=== PATIENT | male | born 1970 | race Caucasian/White ===

== ENCOUNTER 2024-10-16 22:20 | Observation (INO) | payer OTHER, SELFPAY ==
[2024-10-16 22:45] VITALS: BP 213/121; PULSE 92; RESP 19; TEMP 36.6; O2SAT 96; BMI 54.2
[2024-10-16 23:34] VITALS: BP 183/99; PULSE 96; O2SAT 95
[2024-10-17] VITALS (8 sets, daily range): BP systolic 163–182; BP diastolic 82–105; PULSE 78–98; RESP 17–24; TEMP 36.3–36.8; O2SAT 94–97; BMI 54.2
--- NOTE | 2024-10-17 00:54 | DI.CT.S_ITS ---
PROCEDURE: CT LE LT W CON INDICATIONS: L CHEN WOUND/LEG SWELLING TECHNIQUE: After the administration of intravenous contrast, 3 mm axial sections acquired of the left tibia and fibula, with coronal and sagittal reformats. COMPARISON: None. FINDINGS: Image quality: Excellent. Bones: Mild generalized degenerative changes are seen. No padmini bony involvement is seen with infection, to limits of CT. Mild generalized degenerative changes are seen. Incidental note is made of an accessory ossicle, an os trigonum. Soft tissues: There is an open wound seen involving the anterior medial she in, with packing material. No drainable abscess can be seen. Extensive generalized soft tissue inflammatory change can be seen, with soft tissue thickening. No padmini muscular involvement is seen. IMPRESSION: Open wound involving the anterior medial chen, with packing material. No additional drainable abscess is seen. Extensive prominent cellulitis seen, without padmini muscular involvement. No underlying bony involvement is seen. Dictated by: Alexander iSm M.D. on 10/17/2024 at 0:43 Approved by: Alexander Sim M.D. on 10/17/2024 at 0:45
--- NOTE | 2024-10-17 01:00 | ED.RECABL ---
HPI - Recheck/Abnormal Lab/Rx General Chief Complaint: Recheck/Abnormal Lab/Rx Stated Complaint: sore leg, short of breath Time Seen by Provider: 10/16/24 23:34 Source: patient Mode of arrival: Ambulatory History of Present Illness HPI narrative: 54-year-old male with history of alcohol use disorder, hypertension presents for shortness of breath and for evaluation of a left leg wound. Patient recently had prolonged hospital stay at [facility] in [place]. Patient admitted from 09/23 - 10/15 for cellulitis of his LLE. He underwent I&D of his LLE with general surgery on 09/29 and completed IV Rocephin and Vancomycin on 10/11. Patient states that he lives on [facility], but was in [place] visiting his brother. His brother was unable to keep him any longer and so he flew back home. Patient states that he feels like he can not breathe very well and hasn't been since the beginning of his hospital stay. He says they did a chest X ray which was normal and his concerns were dismissed. He also complains that he does not have any resources to care for himself at home. Related Data Previous Rx's Medication Instructions Recorded diclofenac sodium 3 % topical gel 1 applic topical BID #100 grams 07/05/24 cephalexin 500 mg capsule 1,000 mg (2 x 500 mg) PO BID #40 09/18/24 caps meloxicam 7.5 mg tablet 7.5 mg PO DAILY PRN pain #20 tabs 09/18/24 Allergies Allergy/AdvReac Type Severity Reaction Status Date / Time No Known Drug Allergies Allergy Verified 08/30/24 15:37 Patient History Social History Smoking Status: Current every day smoker Smoking Status: Current every day smoker Exam Initial Vital Signs Initial Vital Signs: Vital Signs Temperature 97.8 F 10/16/24 22:45 Pulse Rate 92 H 10/16/24 22:45 Respiratory Rate 19 10/16/24 22:45 Blood Pressure 213/121 H 10/16/24 22:45 Pulse Oximetry 96 10/16/24 22:45 Oxygen Delivery Method Room Air 10/16/24 22:45 Const: Awake, alert, no acute distress Cardiac: regular rate, regular rhythm RESP: unlabored, clear, no wheezing, speaking in long, extensive sentences without dyspnea MSK: wound with packing anterior chen Skin: erythema, extra warmth LLE from dorsum of foot to knee Neuro: AO x3, CN II-XII grossly intact, moves all extremities Course Orders Ordered: ED Orders 10/17/24 00:52 Consult to FINANCIAL ASSISTANCE SPECIALIST - Manager Of Software Stat 10/17/24 00:54 CT LE LT w con Stat 10/17/24 00:58 CBC Auto Diff [Complete Blood Count AUTO DIFF] Stat CMP [Comprehensive Metabolic Panel] Stat CRP [C-Reactive Protein Quant] Stat Erythrocyte Sedimentation Rate Stat NT-proBNP (BNP-Adult 18+) Stat Trop I [Troponin I] Stat 10/17/24 01:53 Chest [XR chest 1V] Stat Acetaminophen (Acetaminophen 325 Mg Tablet) 650 mg PO Q6H PRN PRN Reason: Fever/Mild Pain (1-3) Al Hydrox/Mg Hydrox/Simethicone (Mag Hydrox/Alum/Simeth 30 Ml Udc) 30 ml PO Q6HR PRN PRN Reason: Dyspepsia Enoxaparin Sodium (Enoxaparin 40 Mg/0.4 Ml Syringe) 40 mg SUBCUT DAILY ANNIE Vancomycin HCl/Dextrose (Vancomycin) 2,000 mg in 400 mls @ 200 mls/hr IV NOW ONE Stop: 10/17/24 03:56 Last Admin: 10/17/24 02:41 Dose: 200 mls/hr Documented By: OZZIE Ceftriaxone Sodium 2,000 mg/ (Sodium Chloride) 100 mls @ 200 mls/hr IV Q24H ANNIE Naloxone HCl (Naloxone 0.4 Mg/Ml Vial) 0.2 mg IV Q2MIN PRN PRN Reason: Opiate Reversal Ondansetron HCl (Ondansetron 4 Mg/2 Ml Inj) 4 mg IV Q8HR PRN PRN Reason: Nausea And Vomiting Oxycodone HCl (Oxycodone Ir 5 Mg Tablet) 2.5 mg PO Q3H PRN PRN Reason: Pain, Moderate (4-6) Oxycodone HCl (Oxycodone Ir 10 Mg Tablet) 5 mg PO Q3H PRN PRN Reason: Pain, Severe (7-10) Sennosides (Sennosides 8.6 Mg Tablet) 17.2 mg PO BEDTIME PRN PRN Reason: constipation Vancomycin HCl (Vancomycin Per Pharmacy) 1 request MISC NOW PRN PRN Reason: cellulitis Discontinued Medications Ceftriaxone Sodium 2,000 mg/ (Sodium Chloride) 100 mls @ 200 mls/hr IV NOW ONE Stop: 10/17/24 01:57 Last Infusion: 10/17/24 02:42 Dose: Infused Documented By: Admin: 10/17/24 02:01 Dose: 200 mls/hr Documented By: Azithromycin 500 mg/ Dextrose 250 mls @ 250 mls/hr IV NOW ONE Stop: 10/17/24 02:48 Lorazepam (Lorazepam 2 Mg/Ml Inj) 1 mg IV NOW ONE Stop: 10/17/24 01:15 Last Admin: 10/17/24 01:30 Dose: 1 mg Documented By: Vital Signs Vital signs: Vital Signs - 8 hr 10/16/24 22:45 10/16/24 23:34 10/16/24 23:34 Temperature 97.8 F Pulse Rate 92 H 96 H Respiratory Rate 19 Blood Pressure 213/121 H 183/99 H Pulse Oximetry 96 95 Oxygen Delivery Method Room Air 10/17/24 00:00 10/17/24 00:00 10/17/24 00:30 Temperature Pulse Rate 78 85 Respiratory Rate Blood Pressure 168/83 H Pulse Oximetry 94 95 Oxygen Delivery Method 10/17/24 00:30 Temperature Pulse Rate Respiratory Rate Blood Pressure 170/92 H Pulse Oximetry Oxygen Delivery Method MDM - Recheck/Abnormal Lab/Rx Lab Data 10/17/24 00:58 10/17/24 00:58 Labs: Lab Results 10/17/24 Range/Units 00:58 WBC 7.7 (4.5-11.0) X10^3/uL RBC 4.13 L (4.5-5.9) X10^6/uL Hgb 11.5 L (13.5-17.5) g/dL Hct 35.3 L (41-53) % MCV 85.6 (80-100) fL MCH 27.9 (26-34) PG MCHC 32.6 (30-36) % RDW 14.9 H (11.6-14.8) % Plt Count 276 (150-400) X10^3/uL Neut % (Auto) 64.9 (50-75) % Lymph % (Auto) 20.2 L (25-40) % [place] % (Auto) 8.5 (3-14) % Eos % (Auto) 5.2 H (2-4) % Baso % (Auto) 1.2 (0-2) % Neut # (Auto) 5000 (3294-9165) /uL Lymph # (Auto) 1600 (2248-7886) /uL [place] # (Auto) 700 (0-900) /uL Eos # (Auto) 400 (0-450) /uL Baso # (Auto) 100 (0-100) /uL ESR 23 H (0-15) MM/HR Sodium 137 (137-145) mmol/L Potassium 3.7 (3.4-5.1) mmol/L Chloride 104 (98-107) mmol/L Carbon Dioxide 31 (22-32) mmol/L BUN 20 (9-20) mg/dL Creatinine 0.81 (0.66-1.25) mg/dL Estimated GFR > 60 (>60) mL/min BUN/Creatinine Ratio 24.7 H (6-22) Glucose 134 H (70-100) mg/dL Calcium 8.6 (8.4-10.2) mg/dL Total Bilirubin 0.4 (0.2-1.3) mg/dL AST 39 (17-59) IU/L ALT 37 (<50) IU/L Alkaline Phosphatase 87 (38-126) U/L Troponin I 0.018 (0.01-0.034) ng/mL C-Reactive Protein 1.6 H (<1.0) mg/dL NT-Pro-B Natriuret Pep 342 H (<125) pg/mL Total Protein 6.9 (6.3-8.2) g/dL Albumin 3.7 (3.5-5.0) g/dL Globulin 3.2 (1.7-4.1) g/dL Albumin/Globulin Ratio 1.2 (1.0-2.8) Imaging Data CT scan - abdomen/pelvis: Radiologist's Impression: PROCEDURE: CT LE LT W CON INDICATIONS: L CHEN WOUND/LEG SWELLING TECHNIQUE: After the administration of intravenous contrast, 3 mm axial sections acquired of the left tibia and fibula, with coronal and sagittal reformats. COMPARISON: None. FINDINGS: Image quality: Excellent. Bones: Mild generalized degenerative changes are seen. No padmini bony involvement is seen with infection, to limits of CT. Mild generalized degenerative changes are seen. Incidental note is made of an accessory ossicle, an os trigonum. Soft tissues: There is an open wound seen involving the anterior medial she in, with packing material. No drainable abscess can be seen. Extensive generalized soft tissue inflammatory change can be seen, with soft tissue thickening. No padmini muscular involvement is seen. IMPRESSION: Open wound involving the anterior medial chen, with packing material. No additional drainable abscess is seen. Extensive prominent cellulitis seen, without padmini muscular involvement. No underlying bony involvement is seen. Dictated by: Alexander Sim M.D. on 10/17/2024 at 0:43 Approved by: Alexander Sim M.D. on 10/17/2024 at 0:45 Chest x-ray: Radiologist's Impression: Preliminary report: RLL PNA MDM Narrative Medical decision making narrative: Patient with LLE wound, subjective dyspnea. Patient has been off of antibiotics for 1 week but since his hospital stay was in [place] he has no resources at home. Unfortunately it appears as though his left lower extremity may be becoming cellulitic again. It was warm to the touch, very erythematous. Wound dressing last changed 2 days ago. Although patient was complaining of feeling short of breath he is saturating well on room air and able to speak in lengthy sentences without dyspnea. Laboratory work shows WBC count 7.7, hemoglobin 11.5, platelet count 276, sodium 137, potassium 3.7, creatinine 0.81, CRP 1.6. CT of the lower extremity shows extensive cellulitic changes, no muscle involvement or abscess. CXR read as RLL PNA. Appears as though RLL infiltrate may possibly be overlap from patient's abdomen, however will add azithromycin for coverage. Patient to be admitted for further treatment. Discharge Plan Departure Patient Disposition: Admitted As Inpatient Clinical Impression: Cellulitis of leg, Pneumonia Admit Date/Time: 10/17/24 03:06 Admit Provider: Jeremias Yates
[2024-10-17 01:05] LABS: Add Manual Diff / Slide Review NO; Basophils Absolute Auto 100 /uL (0-100); Basophils Percent Auto 1.2 % (0-2); Eosinophils Absolute Auto 400 /uL (0-450); Eosinophils Percent Auto 5.2 % (2-4); Hematocrit 35.3 % (41-53); Hemoglobin 11.5 g/dL (13.5-17.5); Lymphocytes Absolute Auto 1600 /uL (1100-4500); Lymphocytes Percent Auto 20.2 % (25-40); Mean Corpuscular HGB Conc 32.6 % (30-36); Mean Corpuscular Hemoglobin 27.9 PG (26-34); Mean Corpuscular Volume 85.6 fL (80-100); Monocytes Absolute Auto 700 /uL (0-900); Monocytes Percent Auto 8.5 % (3-14); Neutrophils Absolute Auto 5000 /uL (1500-7000); Neutrophils Percent Auto 64.9 % (50-75); Platelet Count 276 X10^3/uL (150-400); Red Blood Cell Count 4.13 X10^6/uL (4.5-5.9); Red Cell Distribution Width 14.9 % (11.6-14.8); White Blood Cell Count 7.7 X10^3/uL (4.5-11.0)
[2024-10-17 01:18] LABS: Alanine Aminotransferase 37 IU/L (<50); Albumin 3.7 g/dL (3.5-5.0); Albumin Globulin Ratio 1.2 (1.0-2.8); Alkaline Phosphatase 87 U/L (38-126); Aspartate Aminotransferase 39 IU/L (17-59); BUN Creatinine Ratio 24.7 (6-22); Bilirubin Total 0.4 mg/dL (0.2-1.3); Blood Urea Nitrogen 20 mg/dL (9-20); C-Reactive Protein Quant 1.6 mg/dL (<1.0); Calcium 8.6 mg/dL (8.4-10.2); Carbon Dioxide 31 mmol/L (22-32); Chloride 104 mmol/L (98-107); Estimated Glomerular Filt Rate > 60 mL/min (>60); Globulin 3.2 g/dL (1.7-4.1); Glucose 134 mg/dL (70-100); HEMOLYSIS < 15 (0-50); Potassium 3.7 mmol/L (3.4-5.1); Sodium 137 mmol/L (137-145); Total Protein 6.9 g/dL (6.3-8.2)
[2024-10-17] MEDS: LORazepam 2 MG/ML INJ 1 MG IV (01:30)
--- NOTE | 2024-10-17 01:53 | DI.RAD.S_ITS ---
PROCEDURE: XR CHEST 1V INDICATIONS: dyspnea TECHNIQUE: One view of the chest was acquired. COMPARISON: None. FINDINGS: Surgical changes and devices: None. Lungs and pleura: Subtle opacity in right lower lung field is seen. No pleural effusions or pneumothorax. Mediastinum: Mediastinal contours appear normal. Heart size is enlarged. Bones and chest wall: No suspicious bony lesions. Overlying soft tissues appear unremarkable. IMPRESSION: Suggestion of small right lower lobe infiltrate versus atelectasis. Cardiomegaly. No pleural effusion or pneumothorax. No discrepancies. Dictated by: Martín Lagos M.D. on 10/17/2024 at 8:17 Approved by: Martín Lagos M.D. on 10/17/2024 at 8:18
[2024-10-17] MEDS: cefTRIAXone 2,000 MG in SODIUM CHLORIDE 0.9% 100 ML 200 MG IV (02:01)
[2024-10-17 02:11] LABS: Erythrocyte Sedimentation Rate 23 MM/HR (0-15)
[2024-10-17 02:17] LABS: NT-proBNP (BNP-Adult 18+) 342 pg/mL (<125); Troponin I 0.018 ng/mL (0.01-0.034)
[2024-10-17] MEDS: VANCOMYCIN 2,000 MG/400 ML PIGGYBACK 200 MG IV (02:41)
--- NOTE | 2024-10-17 03:13 | DI.ECHO.S_ITS ---
[facility] : : [id number] : [place] : : [id number] : : Phone: [phone] Echocardiogram Report + :Name: GURINDER GOODMAN Study Date: 10/17/2024 Height: 72 in : :[facility] ReadingLocation: Weight: 400 lb : : Gender: Male BSA: 2.9 m2 : :: 1970 Age: 54 yrs BP: 170/82 mmHg: :Reason For Study: SUSPECTED CONGESTIVE HEART FAILURE : :Ordering Physician: MELO : :MATHEUS WEBSTER Performed By: Paulette Deal : :Referring: MATHEUS JOYCE : + Interpretation Summary The study quality was technically difficult. There is mild concentric left ventricular hypertrophy. The ejection fraction is estimated to be 60-65%. Diastolic function could not be accurately assessed due to unobtainable data. The right ventricle is normal in size and function. No obvious valvular abnormality. Pulmonary artery pressures cannot be estimated because of the lack of a measurable TR jet velocity but the IVC suggests a CVP of around 15 mmHg. The ascending aorta is mildly enlarged, 3.8 cm. Procedure: A two-dimensional transthoracic echocardiogram with color flow and Doppler was performed. The study quality was technically difficult. There is no prior echocardiogram noted for this patient. The patient was in sinus rhythm with heart rates between 84-99 bpm during the exam. Left Ventricle: The left ventricle is normal in size. There is mild concentric left ventricular hypertrophy. The ejection fraction is estimated to be 60-65%. Diastolic function could not be accurately assessed due to unobtainable data. Right Ventricle: The right ventricle is normal in size and function. Atria: The left atrial size is normal. Right atrial size is normal. There is no Doppler evidence for an interatrial shunt. Mitral Valve: The mitral valve leaflets appear mildly thickened, but open well. There is moderate mitral annular calcification. The mitral valve mean gradient is 4.6 mmHg. No significant mitral valve stenosis. There is no mitral regurgitation noted. Aortic Valve: The aortic valve opens well. There is no aortic valve stenosis. No aortic regurgitation is present. Tricuspid Valve: The tricuspid valve leaflets are thin and pliable. There is a trace or physiologic amount of tricuspid regurgitation. Pulmonary artery pressures cannot be estimated because of the lack of a measurable TR jet velocity but the IVC suggests a CVP of around 15 mmHg. Pulmonic Valve: The pulmonic valve is not well visualized. There is no pulmonic valvular regurgitation. Great Vessels: The aortic root is normal size. The ascending aorta is mildly enlarged. The IVC is dilated (diameter is greater than 2.1 cm) and it collapses less than 50% with a sniff. This suggests a high right atrial pressure of 15 mm Hg. Pericardium/ Pleura There is no pericardial effusion. There is no pleural effusion. MMode/2D Measurements & Calculations LVIDd: 5.3 cm LVOT diam: 2.3 cm LVIDs: 4.0 cm Ao root diam: 3.7 cm FS: 25.1 % asc Aorta Diam: 3.8 cm EPSS: 0.62 cm IVSd: 1.2 cm LVPWd: 1.1 cm LV douglass. diameter/BSA (cm/m^2): 1.9 LV sys. diameter/BSA (cm/m^2): 1.4 LA A2 area: 26.3 cm2 RA long axis: 4.8 cm LA A4 area: 16.6 cm2 RA area: 18.1 cm2 LA length (vol): 5.2 cm RA vol: 58.1 ml LA vol: 71.2 ml RA : 20.3 ml/m2 LA vol index: 24.9 ml/m2 IVC diam: 3.4 cm RVD1 (basal): 4.0 cm RVD2 (mid): 3.3 cm TAPSE: 2.3 cm Doppler Measurements & Calculations Ao V2 max: 210.7 cm/sec LVOT Max Flo: 155.7 cm/sec Ao V2 mean: 159.0 cm/sec LV V1 max P.7 mmHg Ao max P.4 mmHg LV V1 VTI: 28.1 cm Ao mean P.6 mmHg PALOMA(I,D): 3.1 cm2 Ao V2 VTI: 38.5 cm PALOMA(V,D): 3.1 cm2 sev ratio: 0.73 PALOMA indexed to BSA (cm^2/m^2): 1.1 MV E max flo: 130.8 cm/sec PA V2 max: 110.2 cm/sec MV A max flo: 114.0 cm/sec PA V2 mean: 79.4 cm/sec MV E/A: 1.1 PA mean P.7 mmHg Med Peak E' Flo: 8.2 cm/sec PA pr(Accel): 13.9 mmHg E/E' med: 16.0 Lat Peak E' Flo: 7.9 cm/sec E/E' lat: 16.7 E/e' average: 16.3 MV dec time: 0.22 sec MVA(VTI): 2.9 cm2 MV V2 mean: 97.7 cm/sec SV(LVOT): 117.8 ml MV mean P.6 mmHg MV V2 VTI: 40.9 cm Reading Physician:02:33 PM
--- NOTE | 2024-10-17 03:18 | PM.HP.1 ---
History of Present Illness History of Present Illness Date Patient Seen: 10/17/24 Chief complaint: sore leg, short of breath Narrative: 54 y/o with PMH of HTN, chronic left knee pain, alcohol abuse, smoking, morbid obesity, anxiety, came to the ER complaining on left leg swelling and pain and shortness of breath. CT shows significant LLE cellulitis, w/o an abscess. CXR shows RLL infiltrate. Without leukocytosis, not septic. Covered with vancomycin, ceftriaxone and azithromycin in the ED. A month ago he injured leg, bumped into something, just before his trip to [place]. His PCP prescribed an antibiotic before his trip. Not clear if he filed that but after few days in [place] he was hospitalized in [facility] on 09/23 for 3 weeks. He had I&D and was on IV abx through 10/11, vancomycin and Rocephin. He then came back home few days ago. [facility] Social History household members: none Smoking Status: Current every day smoker Meds Home Medications and Allergies Home Medications Medication Instructions Recorded Confirmed Type diclofenac sodium 3 % topical gel 1 applic topical BID #100 grams 07/05/24 07/05/24 Rx cephalexin 500 mg capsule 1,000 mg (2 x 500 mg) PO BID #40 09/18/24 09/18/24 Rx caps meloxicam 7.5 mg tablet 7.5 mg PO DAILY PRN pain #20 tabs 09/18/24 Rx Allergies Allergy/AdvReac Type Severity Reaction Status Date / Time No Known Drug Allergies Allergy Verified 08/30/24 15:37 Review of Systems Constitutional Comments: w/o chills had fever Cardiovascular Comments: w/o chest pain Respiratory Comments: short of breath Musculoskeletal Comments: chronic b/l (Lt > Rt) knee pain Left leg tender, red, swollen, getting worse Exam Vital Signs (past 8 hours): - 10/16/24 22:45 10/16/24 23:34 10/16/24 23:34 Temperature 97.8 F Pulse Rate 92 H 96 H Respiratory Rate 19 Blood Pressure 213/121 H 183/99 H Pulse Oximetry 96 95 Oxygen Delivery Method Room Air 10/17/24 00:00 10/17/24 00:00 10/17/24 00:30 Temperature Pulse Rate 78 85 Respiratory Rate Blood Pressure 168/83 H Pulse Oximetry 94 95 Oxygen Delivery Method 10/17/24 00:30 10/17/24 03:11 10/17/24 03:11 Temperature Pulse Rate Respiratory Rate 20 Blood Pressure 170/92 H 165/90 H Pulse Oximetry 97 Oxygen Delivery Method Oxygen Delivery Method Room Air Const Other: in no distress Resp Other: normal respiratory effort, CTA Cardio Other: RRR Skin Other: erythema LLE, Lt chen packed wound Neuro Other: w/o deficits Psych Other: lucid, odd affect Objective Labs 10/17/24 00:58 10/17/24 00:58 Labs: Laboratory Results - last 24 hr 10/17/24 00:58 WBC 7.7 RBC 4.13 L Hgb 11.5 L Hct 35.3 L MCV 85.6 MCH 27.9 MCHC 32.6 RDW 14.9 H Plt Count 276 Neut % (Auto) 64.9 Lymph % (Auto) 20.2 L [place] % (Auto) 8.5 Eos % (Auto) 5.2 H Baso % (Auto) 1.2 Neut # (Auto) 5000 Lymph # (Auto) 1600 [place] # (Auto) 700 Eos # (Auto) 400 Baso # (Auto) 100 ESR 23 H Sodium 137 Potassium 3.7 Chloride 104 Carbon Dioxide 31 BUN 20 Creatinine 0.81 Estimated GFR > 60 BUN/Creatinine Ratio 24.7 H Glucose 134 H Calcium 8.6 Total Bilirubin 0.4 AST 39 ALT 37 Alkaline Phosphatase 87 Troponin I 0.018 C-Reactive Protein 1.6 H NT-Pro-B Natriuret Pep 342 H Total Protein 6.9 Albumin 3.7 Globulin 3.2 Albumin/Globulin Ratio 1.2 Assessment & Plan Assessment and plan (1) Cellulitis of leg: Qualifiers: Laterality: left Qualified Code(s): L03.116 - Cellulitis of left lower limb Status: Acute (2) Pneumonia: Qualifiers: Laterality: right Lung location: lower lobe of lung Pneumonia type: due to unspecified organism Qualified Code(s): J18.9 - Pneumonia, unspecified organism Status: Acute (3) Uncontrolled hypertension: Status: Acute (4) Anxiety: Status: Acute (5) Smoker: Status: Acute (6) Morbid obesity: Status: Acute (7) Alcohol abuse: Status: Acute Assessment & Plan narrative: LLE Cellulitis - Rocephin, vancomycin - wound care - elevate leg PNA / Smoker - RLL, possibly aspiration with a Hx of alcohol use - on Rocephin already, not hypoxic - nicotine patch Uncontrolled HTN - not on antihypertensive - started Lisinopril 10 mg bid - echocardiogram, suspected CHF Alcohol Abuse / Anxiety / Panic Attacks - not on medications - last drink a month ago - had Ativan in ED DVT prophylaxis - Lovenox Time-Based Coding :: [TOTAL MINUTES] spent with patient and on the chart (including review of chart, obtaining history, exam, reviewing outside data, placing orders, documenting exam and treatment plan, and counseling patient) on [DATE].
[2024-10-17] MEDS: AZITHROMYCIN 500 MG in DEXTROSE 5% IN WATER 250 ML 250 MG IV (05:43)
[2024-10-17 05:57] LABS: MRSA (Nasal) PCR NOT DETECTED (Not Detect)
[2024-10-17] MEDS: ENOXAPARIN 40 MG/0.4 ML SYRINGE SUBCUT ×2 (09:04→21:03)
--- NOTE | 2024-10-17 11:41 | P.HP_ITS ---
History of Present Illness History of Present Illness Date Patient Seen: 10/17/24 Time Patient Seen: 08:25 Date of Onset of Symptoms: 10/16/24 Chief complaint: sore leg, short of breath Narrative: 54 y/o with PMH of HTN, chronic left knee pain, alcohol abuse, smoking, morbid obesity, anxiety, came to the ER complaining on left leg swelling and pain and shortness of breath. CT shows significant LLE cellulitis, w/o an abscess. CXR shows RLL infiltrate. Without leukocytosis, not septic. Covered with vancomycin, ceftriaxone and azithromycin in the ED. A month ago he injured leg, bumped into something, just before his trip to [place]. His PCP prescribed an antibiotic before his trip. Not clear if he filed that but after few days in [place] he was hospitalized in [facility] on 09/23 for 3 weeks. He had I&D and was on IV abx through 10/11, vancomycin and Rocephin. He then came back home few days ago. Cell, under the primary care in [facility] Interval history: He lives on his sailboat in [facility], under the primary care of Dr. Lisette Hebert. [facility] Social History household members: none Smoking Status: Current every day smoker Meds Home Medications and Allergies Home Medications Medication Instructions Recorded Confirmed Type diclofenac sodium 3 % topical gel 1 applic topical BID #100 grams 07/05/24 07/05/24 Rx cephalexin 500 mg capsule 1,000 mg (2 x 500 mg) PO BID #40 09/18/24 09/18/24 Rx caps meloxicam 7.5 mg tablet 7.5 mg PO DAILY PRN pain #20 tabs 09/18/24 Rx Allergies Allergy/AdvReac Type Severity Reaction Status Date / Time No Known Drug Allergies Allergy Verified 08/30/24 15:37 Review of Systems Review of Systems ROS: Yes All systems reviewed with the patient and are negative except as otherwise documented Exam Vital Signs (past 8 hours): - 10/17/24 03:43 10/17/24 07:00 10/17/24 08:00 Temperature 97.4 F L 98 F Pulse Rate 86 85 Respiratory Rate 22 17 Blood Pressure 182/105 H 170/82 H Pulse Oximetry 97 96 Oxygen Delivery Method Room Air Oxygen Flow Rate 0 0 Oxygen Delivery Method Room Air Oxygen Flow Rate 0 Narrative Exam Narrative: GENERAL: This is a well-nourished, well-developed patient, in no apparent distress. EYES: Pupils equal round and reactive. Extraocular motions intact. No scleral icterus. No injection or drainage. ENT: Mucous membranes pink and moist. NECK: Supple, nontender, no meningeal signs. CARDIOVASCULAR: Regular rate and rhythm without murmurs, gallops, or rubs. RESPIRATORY: Clear to auscultation. GASTROINTESTINAL: Abdomen soft, non-tender, nondistended. EXTREMITIES: 1-2+ edema. NEUROLOGIC: Alert, oriented, speech fluent, full upper and lower motor strength, no focal deficits evident. DERMATOLOGIC: Bilateral lower extremity erythema from ankles to mid chen, with left anterior chen 3 cm wound packed with gauze. Objective Imaging CT lower extremities:: Radiologist's impression: Open wound involving the anterior medial chen, with packing material. No additional drainable abscess is seen. Extensive prominent cellulitis seen, without padmini muscular involvement. No underlying bony involvement is seen. Chest x-ray: Radiologist's impression: Suggestion of small right lower lobe infiltrate versus atelectasis. Cardiomegaly. No pleural effusion or pneumothorax. No discrepancies. Labs 10/17/24 00:58 10/17/24 00:58 Labs: Laboratory Results - last 24 hr 10/17/24 10/17/24 00:58 04:05 WBC 7.7 RBC 4.13 L Hgb 11.5 L Hct 35.3 L MCV 85.6 MCH 27.9 MCHC 32.6 RDW 14.9 H Plt Count 276 Neut % (Auto) 64.9 Lymph % (Auto) 20.2 L [place] % (Auto) 8.5 Eos % (Auto) 5.2 H Baso % (Auto) 1.2 Neut # (Auto) 5000 Lymph # (Auto) 1600 [place] # (Auto) 700 Eos # (Auto) 400 Baso # (Auto) 100 ESR 23 H Sodium 137 Potassium 3.7 Chloride 104 Carbon Dioxide 31 BUN 20 Creatinine 0.81 Estimated GFR > 60 BUN/Creatinine Ratio 24.7 H Glucose 134 H Calcium 8.6 Total Bilirubin 0.4 AST 39 ALT 37 Alkaline Phosphatase 87 Troponin I 0.018 C-Reactive Protein 1.6 H NT-Pro-B Natriuret Pep 342 H Total Protein 6.9 Albumin 3.7 Globulin 3.2 Albumin/Globulin Ratio 1.2 Nasal Screen MRSA (PCR) Not detected Assessment & Plan Assessment & Plan narrative: LLE Cellulitis - Rocephin, vancomycin - wound care - elevate leg PNA / Smoker - RLL, possibly aspiration with a Hx of alcohol use - on Rocephin already, not hypoxic - nicotine patch Uncontrolled HTN - not on antihypertensive - started Lisinopril 10 mg bid - echocardiogram, suspected CHF Alcohol Abuse / Anxiety / Panic Attacks - not on medications - last drink a month ago - had Ativan in ED DVT prophylaxis - Lovenox Quality MIPS - Admit I confirm the patient?s Advance Care Plan is present, Code status is documented, Surrogate decision maker is in patient?s record [If Yes, STOP here]: Yes MIPS - Meds 'Current medications' to include all prescriptions, [id number] products, herbals, cannabis/cannabidiol products, and vitamin/mineral/dietary (nutritional) supplements. I have utilized all available resources to obtain, update, or review the patient?s current medications. [If Yes, STOP here]: Yes PROFEE Charge Codes Initial inpatient/observation care: 78872
--- NOTE | 2024-10-17 12:55 | PT.IIE ---
Current Diagnoses Morbid (severe) obesity due to excess calories (10/17/24) Alcohol abuse, uncomplicated (10/17/24) Nicotine dependence, unspecified, uncomplicated (10/17/24) Anxiety disorder, unspecified (10/17/24) Essential (primary) hypertension (10/17/24) Pneumonia, unspecified organism (10/17/24) Cellulitis of left lower limb (10/17/24) Physical Therapy Inpatient Evaluation/Re-Eval M1 PT/OT-IP Prior Functional Status Start: 10/17/24 12:44 Freq: NEEDED Status: Active Protocol: Document 10/17/24 12:44 [facility] (Rec: 10/17/24 12:54 [facility] [id number]) Medical Review Prior Functional Status Medical History Reviewed Yes Diet/Fluid Consistency Regular Communication WNL Mobility and Gait amb the past month w/walking stick but nothing prior Activities of Daily Living and IADL's I Social History Household Members none Living Arrangements Other Additional Social History Comment [place] lives [place]. Difficult to get social hx M2 PT-IP Current Condition Start: 10/17/24 12:44 Freq: NEEDED Status: Active Protocol: Document 10/17/24 12:44 [facility] (Rec: 10/17/24 12:54 [facility] [id number]) Physical Therapy Current Condition Current Condition Evaluation Date 10/17/24 Treatment Diagnosis LLE cellulitis M3 PT-IP Subjective Start: 10/17/24 12:44 Freq: NEEDED Status: Active Protocol: Document 10/17/24 12:44 [facility] (Rec: 10/17/24 12:54 [facility] [id number]) Subjective Physical Therapy Visit Type Type Initial Evaluation Visit Start Time 12:03 Visit Stop Time 12:33 Number of ACUPRESSURE THERAPIST Visits 0 Physical Therapy Visit Comments Patient Comments Pt notes frustration about care here and at other hospital. Notes he knows going back to his boat is not safe for his LLE wound M4 PT-IP Mobility and Gait Start: 10/17/24 12:44 Freq: NEEDED Status: Active Protocol: Document 10/17/24 12:44 [facility] (Rec: 10/17/24 12:54 [facility] [id number]) PT-Transfer Assessment Sit to and From Stand Sit to and from Stand Independent,Use of Upper Extremities Gait Assessment Gait Gait Assistance Required: Standby Assistance Distance (Feet) 120 Assistive Devices Assistive Device Gait Belt Gait Deviations General Gait Pattern Decreased Feet Clearance, Lateral Trunk Lean Factors Limiting Gait Function Factors Limiting Gait Function Decreased Strength,Pain Comments Gait Comments Pt sitting in chair upon PT arrival. He is able to stand Indep and amb around room then down [place]es and back w/SBA and some SOB. Stopped walk d/t pt frustrated dressing kept falling down. He sat in chair indep and stood again indep to amb room to look for his walking stick SBA. Pt left in chair w/call light in reach. PT-Balance Assessment Sitting Balance and Reactions Static Sitting Balance Ability Normal Dynamic Sitting Balance Ability Normal Standing Balance and Reactions Static Standing Balance Ability Normal Dynamic Standing Balance Ability Good M5 PT-IP Objective Assessments Start: 10/17/24 12:44 Freq: NEEDED Status: Active Protocol: Document 10/17/24 12:44 [facility] (Rec: 10/17/24 12:54 [facility] [id number]) Orientation Orientation/Cognition Safety Awareness Decreased Safety Awareness Gross Range of Motion Lower Extremity ROM Assessment Within Functional Limits Strength Lower Extremity Strength Assessment Within Functional Limits M6 PT-IP Treatment Start: 10/17/24 12:44 Freq: NEEDED Status: Active Protocol: Document 10/17/24 12:44 [facility] (Rec: 10/17/24 12:54 [facility] [id number]) Physical Therapy Treatment Education Education Provided Safety M7 PT-IP Assessment and Plan Start: 10/17/24 12:44 Freq: NEEDED Status: Active Protocol: Document 10/17/24 12:44 [facility] (Rec: 10/17/24 12:54 [facility] [id number]) PT Summary Assessment and Plan Potential Rehabilitation Potential Good Status of Condition at Evaluation Evolving Summary Assessment Summary Pt is SBA or indep w/all gait and transfers noted today without LOB w/activity. Appears like pt is close to baseline mobility at this time . He was able to don shoes indep in standing w/holding counter for support. At this time DC PT d/t no PT needs. Frequency of Treatment Frequency Of Treatment Discharge Treatment Plan Physical Therapy Treatment Plan Bed Mobility Training,Transfer Training,Gait Training, Therapeutic Exercise,Balance Retraining,Discharge Planning, Neuromuscular Re-ed Recommendations To Nursing Amount of Assist Needed Standby Assistance Discharge Recommendations Other Discharge Recommendations pt will require assist for wound care for home. Difficulty w/safety on boat w/ current LLE wound Transportation Needs at Discharge Private Vehicle
[2024-10-17] MEDS: VANCOMYCIN 1,750 MG in SODIUM CHLORIDE 0.9% 500 ML 250 MG IV (13:33)
--- NOTE | 2024-10-17 15:14 | CM.DANOTE ---
Initial DCP Assessment Note Pt is a 54 yo male, resident of [facility], arrives with complaint of sore leg, swelling, SOB. Patient admitted for management of LLE Cellulitis, PNA, uncontrolled HTN. PMH includes chronic left knee pain, alcohol abuse, smoking, morbid obesity, anxiety. Patient is 6ft 400lbs. PCP: Lisette Hebert Payer: [employer] Reviewed chart, pt discussed in multidisciplinary rounds this morning. Reportedly, patient has been living on his boat in [facility], for 8+years. Patient injured his leg months ago by falling through a deck while working and has had complication with healing since. Patient went to [place] to visit family around [facility] and ended up spending 3 weeks in the hospital for I+D of a leg abscess and IV abx through 10/11. Met w/patient, introduced self and role. Visit brief. Patient cries out in pain and is not forthcoming with information. Patient is currently living on his sail boat, no running water. Patient uses a space heater. Patient admits to difficulty accessing food. Patient knows where the [employer] is and has used the food bank on [facility]. Patient has a barely driveable truck that he uses on [address]. Patient denies illicit drug use and reports being sober for 7o days. Patient does not want to discuss his drinking. Patient seen up moving in his room today and in the hallway, independently w/walker. CM team will plan to follow clinical course closely. Plan: Discharge home to [facility]. Reassess feasibility of this plan if patient requires ongoing IV abx and wound care. BRIAN Smith Discharge Planning/Care Management CM Discharge Assessment Start: 10/17/24 14:57 Freq: Status: Active Protocol: Document 10/17/24 14:57 VALERIO (Rec: 10/17/24 15:14 VALERIO [id number]) Discharge Planning Assessment Assigned [place] BRIAN Blair DPOA/Assigned Designee Name Vivian Davidson, mother Contact Information [phone] Advance Directives? No History Provided By Patient,Medical Record Prior Living Arrangements Other Comment Lives in [facility] that is [facility]. Household Members none Type of transporation used prior to Drives own vehicle admit Independent with ADL's Yes Is patient alert and oriented? Yes Needs Assistance With Meal Prep Comment No AD Patient/Family Preference Prison Facility,Home with Home Health Barriers to Discharge Yes Comment See narrative. Transportation Arrangement TBD Additional Comment TBD Whiteboard Updated in Patient Room with Yes name and ext. # of Porter Marina
[2024-10-17 18:44] LABS: UR Morphine/Opiate cutoff 300 Negative (Negative); Ur Creatinine Normal (Normal); Ur Specific Gravity Normal (Normal); Urine Amphetamines Negative (Negative); Urine Barbiturates Negative (Negative); Urine Benzodiazepines Positive (Negative); Urine Cocaine Negative (Negative); Urine MDMA Negative (Negative); Urine Methadone Negative (Negative); Urine Methamphetamines Negative (Negative); Urine Oxycodone Negative (Negative); Urine Phencyclidine Negative (Negative); Urine Tetrahydrocannabinol Negative (Negative); Urine Tricyclic Antidepressant Negative (Negative); Urine pH Normal (Normal)
--- NOTE | 2024-10-17 18:53 | PC.NURSE ---
Pt condition stable throughout shift. Pt tolerating ambulation around room and in hallways. Tolerated dressing change.
[2024-10-18] MEDS: ACETAMINOPHEN 325 MG TABLET 650 MG PO ×2 (01:09→21:39)
[2024-10-18] MEDS: VANCOMYCIN 1,750 MG in SODIUM CHLORIDE 0.9% 500 ML 250 MG IV (01:12)
[2024-10-18] MEDS: cefTRIAXone 2,000 MG in SODIUM CHLORIDE 0.9% 100 ML 200 MG IV (03:30)
--- NOTE | 2024-10-18 07:52 | PM.PN.1 ---
Subjective Subjective Interval history: Summary: 54 y/o with PMH of HTN, chronic left knee pain, alcohol abuse, smoking, morbid obesity, anxiety, came to the ER complaining on left leg swelling and pain and shortness of breath. CT shows significant LLE cellulitis, w/o an abscess. CXR shows RLL infiltrate. Without leukocytosis, not septic. Covered with vancomycin, ceftriaxone and azithromycin in the ED. A month ago he injured leg, bumped into something, just before his trip to [place]. His PCP prescribed an antibiotic before his trip. Not clear if he filed that but after few days in [place] he was hospitalized in [facility] on 09/23 for 3 weeks. He had I&D and was on IV abx through 10/11, vancomycin and Rocephin. He then came back home few days ago. Cell, under the primary care in [facility]. He lives on his sailboat in [facility], under the primary care of Dr. Lisette Hebert. S: His legs are still swollen, red, and uncomfortable. He denies any delirium symptoms or shakes. He was still quite lethargic. Exam Vital Signs (past 8 hours): Oxygen Delivery Method Room Air Oxygen Flow Rate 0 Narrative Exam Narrative: NAD, alert and oriented. Fluent speech. He was oriented but somewhat lethargic. Lungs are clear, normal rate and effort. Heart is regular, no murmur gallop or rub. Abdomen is soft, non distended. Extremities are both very red, and swollen, the left tibial region is wrapped. Objective Imaging Multiple studies:: Radiologist's impression: CT lower extremities: Radiologist's impression: Open wound involving the anterior medial chen, with packing material. No additional drainable abscess is seen. Extensive prominent cellulitis seen, without padmini muscular involvement. No underlying bony involvement is seen. Chest x-ray: Radiologist's impression: Suggestion of small right lower lobe infiltrate versus atelectasis. Cardiomegaly. No pleural effusion or pneumothorax. Labs 10/17/24 00:58 10/17/24 00:58 Labs: Laboratory Results - last 24 hr 10/17/24 18:02 U Opiates 300ng/mL cut Negative Ur Oxycodone Screen Negative Urine Methadone Screen Negative Ur Barbiturates Screen Negative U Tricyclic Antidepress Negative Ur Phencyclidine Scrn Negative Ur Amphetamines Screen Negative U Methamphetamines Scrn Negative Ur MDMA Scrn (Ecstasy) Negative U Benzodiazepines Scrn Positive H Urine Cocaine Screen Negative U Marijuana (THC) Screen Negative Urine pH Normal Urine Specific [place] Normal Ur Creatinine Normal PFSH Social History household members: none Smoking Status: Current every day smoker Assessment & Plan Assessment & Plan narrative: 1. Left lower leg Cellulitis, present on admission and active. - Rocephin, vancomycin - wound care - elevate leg 2. PNA , present on admission and active. - RLL, possibly aspiration with a Hx of alcohol use - on Rocephin already, not hypoxic - nicotine patch 3. Uncontrolled HTN, active. - not on antihypertensive - started Lisinopril 10 mg bid - echocardiogram, suspected CHF 4. Alcohol Abuse, stable. - not on medications - last drink a month ago - had Ativan in ED 5. Anxiety and Panic Attacks, stable. 6. Tobacco use disorder, present on admission and active. He smokes. PLAN: -continue antibiotics -MRSA screen neg, stop vanco. -leg elevation -monitor for evidence of withdrawal. MARIA DEL CARMEN: 10/20 DVT prophylaxis - Lovenox Time-Based Coding :: [TOTAL MINUTES] spent with patient and on the chart (including review of chart, obtaining history, exam, reviewing outside data, placing orders, documenting exam and treatment plan, and counseling patient) on [DATE].
[2024-10-18] MEDS: OXYCODONE IR 5 MG TABLET 2.5 MG PO (08:26)
[2024-10-18] MEDS: ENOXAPARIN 40 MG/0.4 ML SYRINGE SUBCUT ×2 (08:27→21:37)
[2024-10-18 08:47] VITALS: BP 181/107; PULSE 82; RESP 19; TEMP 36.5; O2SAT 97
--- NOTE | 2024-10-18 09:28 | PC.NURSE ---
Addendum entered by Bibi Sterling R.N. 10/18/24 19:35: 1935 Report given to ellyn TALLEY. Plan of care discussed. 1500 Patient ambulating halls. 1700 Patient ambulating halls. Addendum entered by Bibi Sterling R.N. 10/18/24 14:57: 1441 Wound culture to LLE obtained. Patient extremely agitated and aggressive. Attempted first dressing changed, patient stated, don't hurt me. If you hurt me... well just don't. Assistance provided by MAYANK Bae. Dressing changed completed at this time. Pictures obtained and uploaded to [employer]. Addendum entered by Bibi Sterling R.N. 10/18/24 12:53: 1250 MD Shrestha at the bedside, updating patient on plan of care. MD aware patient has been refusing BP medication. MD explaining the importance of BP medications. Patient agitated and angry regarding education and continued to refuse. Patient updated on plan of care: wound care consulted and to come when available, surgery not consulted, wound culture to be ordered, vanco order d/c-ed d/t MRSA nares negative. Patient wanting to speak to social services counselor. Patient verbalized understanding, no questions at this time. MD order to change patient dressing to LLE, patient refused. MD aware. Original Note: 729 Report received from vinayak TALLEY. Patient AAO x's 3. Sitting in chair. Able to MUNOZ. Dressing to LLE noted and intact. Patient complaining of pain to LLE offered pain medication. Patient adamant on receiving lower dose of oxycodone. Patient BP elevated, patient refusing Lisinopril. Stated, I will follow up with my primary doctor, I'm not taking that. Educated on the importance of BP medication. Patient continues to refuse. Agitated demeanor noted. Call light within reach and bed in lowest position. 0820 BP rechecked: 173/84. Patient stated, I run high. Continues to refuse BP medication. Pain medication administered. Lovenox administered.
[2024-10-18 09:57] VITALS: BP 173/84
--- NOTE | 2024-10-18 15:45 | CM.DPNOTE ---
DCP Note RECRUIT INSTRUCTOR reviewed EMR Per hospitalist in morning rounds, anticipate pt will be here another few days to finalize the wound care plan and abx plan. Hopeful for PO abx at [facility]. Per RN, pt has been refusing BP meds throughout the day. See her note for more. Per RN/provider, pt asked to speak with RECRUIT INSTRUCTOR. RECRUIT INSTRUCTOR and BRIAN Pena met with pt in room. Pt reports lengthy hx of month prior with stay in [facility] and their attempts for SNF placement from there. SNF not able to be secured. pt had to fly back to [place], shuttled to [place], and then immediately came to ED. pt reports there is no one he could stay with in [place] to recover from wounds. he showers in shower house at [place]. pt hopeful for SNF. potentially could go to wound care on [place] in OP setting. pt reports understanding that while our team will do their best to secure SNF pending wound care recommendations that may not be an option. RECRUIT INSTRUCTOR updated TCM team on pt's admission. P: Medical/wound care/IV abx plan pending. Barriers to SNF placement=accepting facility that accepts pt's insurance. Referrals needed. likely could end up as OP WC plan vs swing bed??? CM team will continue to follow clinical course closely BRIAN Goode
[2024-10-18 17:00] VITALS: BP 158/84; PULSE 82; RESP 18; TEMP 36.6; O2SAT 96
[2024-10-18 20:00] VITALS: BP 162/92; PULSE 87; RESP 22; TEMP 36.1; O2SAT 97
[2024-10-18 22:40] VITALS: BP 158/84; PULSE 82
[2024-10-19] MEDS: cefTRIAXone 2,000 MG in SODIUM CHLORIDE 0.9% 100 ML 200 MG IV (02:53)
[2024-10-19] MEDS: OXYCODONE IR 5 MG TABLET 2.5 MG PO ×3 (03:45→17:17)
[2024-10-19 04:00] VITALS: BP 174/105; PULSE 79; RESP 20; TEMP 36.5; O2SAT 97
[2024-10-19 08:00] VITALS: BP 202/113; PULSE 92; RESP 20; TEMP 36.3; O2SAT 99
[2024-10-19 08:30] VITALS: BP 202/113
[2024-10-19] MEDS: ENOXAPARIN 40 MG/0.4 ML SYRINGE SUBCUT (08:30)
--- NOTE | 2024-10-19 08:39 | PC.NURSE ---
08:39 Patient BP 202/113. Pt is aware of his hypertension. He refused his blood pressure meds this AM and said, please don't ask me about that anymore. MD Sandoval notified.
--- NOTE | 2024-10-19 13:02 | P.PN_ITS ---
Subjective Subjective Date Patient Seen: 10/19/24 Time Patient Seen: 13:00 Interval history: Summary: 54 y/o with PMH of HTN, chronic left knee pain, alcohol abuse, smoking, morbid obesity, anxiety, came to the ER complaining on left leg swelling and pain and shortness of breath. CT shows significant LLE cellulitis, w/o an abscess. CXR shows RLL infiltrate. Without leukocytosis, not septic. Covered with vancomycin, ceftriaxone and azithromycin in the ED. A month ago he injured leg, bumped into something, just before his trip to [place]. His PCP prescribed an antibiotic before his trip. Not clear if he filed that but after few days in [place] he was hospitalized in [facility] on 09/23 for 3 weeks. He had I&D and was on IV abx through 10/11, vancomycin and Rocephin. He then came back home few days ago. Cell, under the primary care in [facility]. He lives on his sailboat in [facility], under the primary care of Dr. Lisette Hebert. S: His legs are still swollen, red, and uncomfortable. He denies any delirium symptoms or shakes. He was still quite lethargic. Exam Vital Signs (past 8 hours): - 10/19/24 08:00 10/19/24 08:30 Temperature 97.4 F L Pulse Rate 92 H Respiratory Rate 20 Blood Pressure 202/113 H 202/113 H Pulse Oximetry 99 Oxygen Flow Rate 0 Oxygen Delivery Method Room Air Oxygen Flow Rate 0 Narrative Exam Narrative: NAD, alert and oriented. Fluent speech. He was oriented but somewhat lethargic. Lungs are clear, normal rate and effort. Heart is regular, no murmur gallop or rub. Abdomen is soft, non distended. Extremities are both very red, and swollen, the left tibial region is wrapped. Objective Labs 10/17/24 00:58 10/17/24 00:58 [facility] Social History household members: none Smoking Status: Current every day smoker Assessment & Plan Assessment & Plan narrative: 1. Left lower leg Cellulitis, present on admission and active. - Rocephin, vancomycin - wound care - elevate leg 2. PNA , present on admission and active. - RLL, possibly aspiration with a Hx of alcohol use - on Rocephin already, not hypoxic - nicotine patch 3. Uncontrolled HTN, active. - not on antihypertensive - started Lisinopril 10 mg bid - echocardiogram, suspected CHF 4. Edema -Advance diuresis 5. Alcohol Abuse, stable. - not on medications - last drink a month ago - had Ativan in ED 6. Anxiety and Panic Attacks, stable. 8. Tobacco use disorder, present on admission and active. He smokes. PLAN: -continue antibiotics -elevated legs/diuresis -MRSA screen neg, stop vanco. -monitor for evidence of withdrawal. -anxiety management MARIA DEL CARMEN: 10/20 DVT prophylaxis - Lovenox [facility] PROFEE Charge codes Subsequent inpatient/observation care: [id number]
[2024-10-19] MEDS: NICOTINE 14 PATCH 14 MG TOP (14:21)
--- NOTE | 2024-10-19 14:30 | CM.DPNOTE ---
DCP Note BINDERY CUTTER OPERATOR reviewed EMR per provider in morning rounds, plan to proceed with WC consult input. Zayda TALLEY kindly agreed to reach out to WC and update them on consult. Per Dani TALLEY at [facility] (p [phone] and f [phone]) long history working with this pt. hx of struggling to get pt to come back and forth to appts. pt claims lack of ride. could manage dressing changes 2-3 times per week in OP clinic but have limited supplies. Asked for the wound care photos and updated clinics to be faxed to their office. Dani TALLEY reports if wounds are bad enough they may be unable to meet his need in the OP setting. Asked for update on Tuesday when their team returns to office. ZACH Anderson KINDLY agreed to fax clinicals/wound photos to [facility]. BINDERY CUTTER OPERATOR spoke with mehran from [facility] . report they cannot take pt's insurance. BINDERY CUTTER OPERATOR unable to meet with pt today due to triaging needs. no WC PN available at this time. BINDERY CUTTER OPERATOR attempted to meet with pt in room. out of room ambulating halls? See with MAYANK Priest in wheelchair in hallways. P: medical POC pending. WC plan and abx plan pending. anticipate SNF referrals once plan known. Could be tricky with [facility] ([facility]) vs swing bed vs OP WC. CM team will continue to follow closely BRIAN Goode
--- NOTE | 2024-10-19 14:55 | PC.NURSE ---
Pt refused to take any lasix or have a nicotine patch after Dr. Sandoval saw the pt at bedside. He requested to go outside for fresh air, and stated I'm this close to pulling out my IV and leaving. Pt was offered PRN ativan and he refused. This RN discussed the pt's concerns with Zayda TALLEY, who went to pt's bedside to talk with him. After discussion, pt agreed to nicotine patch, then went outside briefly with Zayda via w/c. When pt returned to his room, he refused the lasix again, and refused to elevate his legs as directed by Dr. Sandoval because there's too much going on right now. Pt was offered his PRN ativan again, but he refused. He is agreeable to seeing wound care later today. Pt now sitting in his chair. Call light is within reach. Dr. Sandoval has been notified.
--- NOTE | 2024-10-19 15:02 | PC.NURSE ---
Primary RN, Barbra, requested that I round on patient. He is reportedly anxious and requesting to go outside. Visiting with the patient he repeatedly states that he has to go outside. He reports that he has been suffering a serious health situation, and has been locked up in a hospital in [place] for 27 days. He traveled home to [place], and immediately came to the ED. He states he needs fresh air. When asked about smoking status patient confirms to be an everyday smoker and reports that he left the unit this a.m. to smoke outside of the ED entrance. Patient educated to hospital smoking policy, patient states don't be cruel. I explained to him the rationale for the policy. Patient states that he is going to need to leave the hospital [place] He states that he understand his need for continued treatment, but needs to go outside. Offered the patient to trial a nicotine patch, and a one-time offer that I would take him outside, no smoking. I reinforced that this is not cannot be an expectation that any other staff would be able to accommodate in the future. Additionally, hospital Inés services were offered. Patient agreeable to the nicotine patch and Inés consult. He declines anxiety medication, I need to keep my faculties, so I can make a decision. I escorted the patient via WC to the main entrance, stand-by ambulation in the courtyard. Patient talking about anxiety, recent negative experience with hospitalization, and episodes of shortness of breath he has been experiencing. Patient walked around [facility] for approximately 20 minutes. Then reported he was ready to return to his room. Once back on the unit, patient report that he is looking forward to the wound care consult, but refused additional treatment with Lasix at this time. He indicates that he is still considering leaving. Educated patient to AMA, and that decision to return to the hospital would require re-evaluation in the ED department. Patient is anxious, but cooperative. Dr. Sandoval and primary RN notified of all of the above.
[2024-10-19] MEDS: ACETAMINOPHEN 325 MG TABLET 650 MG PO (15:34)
[2024-10-19 16:59] VITALS: BMI 54.2
--- NOTE | 2024-10-19 17:14 | PM.CN ---
History of Present Illness Consult details Date Patient Seen: 10/19/24 Time Patient Seen: 16:30 Chief complaint: leg wound Reason for consult: wound consult Requesting provider: Enrike Shrestha Narrative: 54 year old male with PMH uncontrolled HTN, BMI 54, and anxiety with deep wound to left anterior lower leg. Patient states the wound started sometime around Thanksgiving after walking into something on his boat. His leg became swollen, red and he was ultimately hospitalized in [place] for 20+ days during which time he underwent surgical I&D and was on IV antibiotics for abscess and cellulitis. He has been receiving dressing changes with iodoform gauze. Patient is concerned he cannot take care of his wound outside the hospital and does not have any support available to help him at home. He denies itching. He is having pain to the wound. SH:[place] islander 15 yrs lives on [address] Home Medications and Allergies Home Medications Medication Instructions Recorded Confirmed Type diclofenac sodium 3 % topical gel 1 applic topical BID #100 grams 07/05/24 07/05/24 Rx cephalexin 500 mg capsule 1,000 mg (2 x 500 mg) PO BID #40 09/18/24 09/18/24 Rx caps meloxicam 7.5 mg tablet 7.5 mg PO DAILY PRN pain #20 tabs 09/18/24 Rx Allergies Allergy/AdvReac Type Severity Reaction Status Date / Time No Known Drug Allergies Allergy Verified 08/30/24 15:37 Exam Vital Signs (past 8 hours): Oxygen Delivery Method Room Air Oxygen Flow Rate 0 Narrative Exam Narrative: Lower extremities: B/l legs are swollen, red and warm Left anterior lower leg with @ 5-6 cm circumference hole that is atleast 1 cm deep. Wound bed with slough around edges and base with granulation tissue. SIze estimated by eyesight as ruler not currently available. No bone visible. Periwound erythematous. Skin of lower leg is dry, scaly and red. Objective Labs 10/17/24 00:58 10/17/24 00:58 [facility] Social History household members: none Tobacco & Substance Use Smoking Status: Current every day smoker Assessment & Plan Assessment and plan (1) Open leg wound: Qualifiers: Encounter type: subsequent encounter Laterality: left Qualified Code(s): S81.802D - Unspecified open wound, left lower leg, subsequent encounter Status: Acute (2) Cellulitis of leg: Qualifiers: Laterality: left Qualified Code(s): L03.116 - Cellulitis of left lower limb Status: Acute (3) Uncontrolled hypertension: Status: Acute (4) Morbid obesity: Status: Acute Plan No debridement today as lidocaine not available and patient in significant pain Recommend rinse with saline during dressing changes, pack wound with iodoform gauze QD, cover with bordered foam or mextra depending on the amt of drainage Apply triamcinolone to lower leg /periwound area if patient complains of itching otherwise monitor response to antibiotics Reviewed importance of keeping legs elevated and edema under control, high protein diet F/u on discharge at wound clinic for wound vacc Discussed option to use Admittedly for transportation from [facility] Time-Based Coding :: [45 MINUTES] spent with patient and on the chart (including review of chart, obtaining history, exam, reviewing outside data, placing orders, documenting exam and treatment plan, and counseling patient) on [10/19/24].
--- NOTE | 2024-10-19 17:17 | PC.NURSE ---
Around approximately 1700, this RN was told that the pt was requesting pain medication. When this RN went to assess the pt, he expressed frustration with the outcome of his wound care and that it didn't go the way that he expected it to. He said I just feel hopeless, and when this RN inquired further, he became agitated and said that he wanted to , and I just want to kill myself. This RN explained the protocol after someone expresses suicidal ideation, and the pt yelled can you just be a human and forget I said anything and leave me alone? This RN notified Dr. Sandoval and nursing support worker Gabi. A APPLICATION ADMINISTRATOR was designated as a 1:1. While this RN was conducting the suicide assessment, the pt asked for oxycodone, so RN Mariel prepared to administer the medication to him. When Mariel attempted to administer the med, the pt became increasingly agitated and said that we weren't giving him the correct medication. He requested to speak with Dr. Sandoval. While this RN was trying to contact Dr. Sandoval, the pt closed his door and the curtain. This RN opened both and tried to explain why it was important to keep them open. The pt yelled that he was getting dressed and wanted privacy, and then went into the bathroom and slammed the door. Dr. Sandoval and nursing support worker were notified that the pt was getting dressed to leave, and a code bharat was called. An AMA form was grabbed, and the pt agreed to have the IV removed. Pt refused to sign the AMA form and told this RN you and me are done. Dr. Sandoval came to bedside and spoke with the pt, but the patient walked out of the room and exited the facility, escorted by nursing support worker.
--- NOTE | 2024-10-19 17:22 | PC.NURSE ---
Pt requesting pain medication, stating pain 8/10. Per provider order, 5mg oxycodone ordered for 7-10 pain. Patient declining this dose, stating, Where the fuck is the 2.5mg. I am not taking 5mg. That isn't the order I agreed to. Pt telling staff to leave me the fuck alone. 2.5 mg oxycodone administered as requested by patient. Pt pacing, fists clenched. Pt in bathroom, shut door forcefully. Pt emerged dressed, stating I'm out of here, I can't handle this. Charge nurse aware, provider notified. IV removed. Provider and charge nurse at bedside. Patient declining to sign AMA paperwork.
--- NOTE | 2024-10-19 18:43 | PC.NURSE ---
Day shift: At approx 1730 Pt decided he would leave this hospital. Dr Sandoval and this instructional writer in Pt's room talking with Pt about his plan to leave AMA. Jaime and this instructional writer gave Pt space and stepped outside Pt's room. Pt then walked out of room and down hallway towards the exit. Noattempt was made to stop Pt and Pt was not touched by any staff. This instructional writer and Security walked with Pt to the ED exit and Pt walked into the roundabout and lighted a smoke. When this instructional writer was walking with Pt he said nothing other than thank you for giving me space and letting me leave. I just need to be out of there. Pt did forget his cell internal security manager and this was returned to him by this instructional writer while he was smoking in the roundabout.
--- NOTE | 2024-10-20 08:27 | CM.DPNOTE ---
Addendum entered by BRIAN Goode 10/20/24 11:45: FOOD SERVICE ASSISTANT spoke with Navid from [facility] (p [phone]). updated him on pt's AMA/SI/agitation. Navid reports their team/local deputies are very familiar with him and will send someone by today to check in with him. ROSANA Original Note: DCP Note FOOD SERVICE ASSISTANT received FOOD SERVICE ASSISTANT consult for SI/HI. reviewed EMR. per chart, pt left yesterday AMA. See nursing notes for more. FOOD SERVICE ASSISTANT updated TCM team on pt's AMA. FOOD SERVICE ASSISTANT lvm with [facility] Electrical Test [employer] Foster Levine to inquire about how to make referrals to [facility] Electrical Test Engineer volunteer team. They could probably benefit from a referral for this pt due to his agitation/resources/medical status. CM team will continue to follow as needed. ROSANA
== END 2024-10-19 17:40 | disposition left against medical advice (07) ==
LOC: ED 10-17 02:47 → AC 10-17 03:29 → ICU 10-17 16:04 → AC 10-19 08:08 → ICU 10-22 08:53
PROVIDERS: Internal Medicine; Admitting Provider Internal Medicine; Emergency Provider Emergency Medicine; PCP Physician Assistant Medical; Referring Provider Emergency Medicine; Visit Provider Internal Medicine
DX: L03.116 Cellulitis of left lower limb (principal); J18.9 Pneumonia, unspecified organism; I10 Essential (primary) hypertension; F41.9 Anxiety disorder, unspecified; E66.01 Morbid (severe) obesity due to excess calories; F10.10 Alcohol abuse, uncomplicated; S81.802D Unspecified open wound, left lower leg, subsequent encounter; F17.200 Nicotine dependence, unspecified, uncomplicated; Z53.29 Procedure and treatment not carried out because of patient's decision for other reasons; F41.0 Panic disorder [episodic paroxysmal anxiety]
CPT/HCPCS: 36415; 71045; 73701; 80053; 80305; 83880; 84484; 85025; 85651; 86140; 87070; 87075; 87147; 87205; 87797; 93306; 96365; 96366; 96367; 96372; 96375; 97116; 97162; 99233; 99284; G0378; J0696; J1650; J2060; Q9967

== ENCOUNTER → 2024-11-19 13:33 | Outpatient (CLI) | payer OTHER, SELFPAY | LOC: WC 15:24 | PROVIDERS: PCP Physician Assistant Medical; Referring Provider Family Medicine; Visit Provider Surgery | DX: T81.89XA Other complications of procedures, not elsewhere classified, initial encounter (principal); I89.0 Lymphedema, not elsewhere classified; S81.802A Unspecified open wound, left lower leg, initial encounter; L97.822 Non-pressure chronic ulcer of other part of left lower leg with fat layer exposed; R60.0 Localized edema; L53.8 Other specified erythematous conditions | CPT/HCPCS: 11045; 99203; 99213 ==

== ENCOUNTER → 2024-12-06 13:55 | Outpatient (CLI) | payer OTHER, SELFPAY | LOC: WC 13:56 | PROVIDERS: PCP Physician Assistant Medical; Referring Provider Family Medicine; Visit Provider Surgery | DX: I89.0 Lymphedema, not elsewhere classified (principal); L97.822 Non-pressure chronic ulcer of other part of left lower leg with fat layer exposed; T81.41XA Infection following a procedure, superficial incisional surgical site, initial encounter; L98.8 Other specified disorders of the skin and subcutaneous tissue; S81.802A Unspecified open wound, left lower leg, initial encounter; L08.89 Other specified local infections of the skin and subcutaneous tissue; R60.0 Localized edema; L53.9 Erythematous condition, unspecified; F17.210 Nicotine dependence, cigarettes, uncomplicated | CPT/HCPCS: 11042; 11045; 87070; 87075; 87077; 87147; 87186; 87205; 99213 ==

== ENCOUNTER → 2024-12-19 13:36 | Outpatient (CLI) | payer OTHER, SELFPAY | LOC: WC 13:37 | PROVIDERS: PCP Physician Assistant Medical; Referring Provider Family Medicine; Visit Provider Surgery | DX: T81.89XA Other complications of procedures, not elsewhere classified, initial encounter (principal); S81.802A Unspecified open wound, left lower leg, initial encounter; I89.0 Lymphedema, not elsewhere classified; L53.8 Other specified erythematous conditions; L97.822 Non-pressure chronic ulcer of other part of left lower leg with fat layer exposed; L97.322 Non-pressure chronic ulcer of left ankle with fat layer exposed | CPT/HCPCS: 11042; 97597; 99213 ==

== ENCOUNTER → 2025-01-09 13:28 | Outpatient (CLI) | payer OTHER, SELFPAY | PROVIDERS: PCP Physician Assistant Medical; Referring Provider Family Medicine; Visit Provider Surgery | DX: T81.89XA Other complications of procedures, not elsewhere classified, initial encounter (principal); S81.802A Unspecified open wound, left lower leg, initial encounter; I89.0 Lymphedema, not elsewhere classified; R60.0 Localized edema; L53.8 Other specified erythematous conditions | CPT/HCPCS: 11042 ==

== ENCOUNTER → 2025-01-30 11:14 | Outpatient (CLI) | payer OTHER, SELFPAY | LOC: WC 03-11 11:15 | PROVIDERS: PCP Physician Assistant Medical; Referring Provider Physician Assistant Medical; Visit Provider Surgery | DX: T81.89XA Other complications of procedures, not elsewhere classified, initial encounter (principal); S81.802A Unspecified open wound, left lower leg, initial encounter; R60.0 Localized edema | CPT/HCPCS: 29581 ==

== ENCOUNTER → 2025-02-13 10:59 | Outpatient (CLI) | payer OTHER, SELFPAY | PROVIDERS: PCP Physician Assistant Medical; Referring Provider Physician Assistant Medical; Visit Provider Surgery | DX: T81.89XA Other complications of procedures, not elsewhere classified, initial encounter (principal); S81.802A Unspecified open wound, left lower leg, initial encounter; I89.0 Lymphedema, not elsewhere classified; R60.0 Localized edema; F17.210 Nicotine dependence, cigarettes, uncomplicated | CPT/HCPCS: 29581; 99213 ==

== ENCOUNTER → 2025-02-27 11:25 | Outpatient (CLI) | payer OTHER, SELFPAY | LOC: WC 11:27 | PROVIDERS: PCP Physician Assistant Medical; Referring Provider Physician Assistant Medical; Visit Provider Surgery | DX: T81.89XA Other complications of procedures, not elsewhere classified, initial encounter (principal); S81.802A Unspecified open wound, left lower leg, initial encounter; I89.0 Lymphedema, not elsewhere classified | CPT/HCPCS: 99213 ==